=== PATIENT | male | born 1970 | race American Indian/Alaskan Native ===

== ENCOUNTER 2017-06-08 10:27 | Emergency (ER) | payer OTHER ==
[2017-06-08 10:56] VITALS: TEMP 99.9; O2SAT 99
--- NOTE | 2017-06-08 11:18 | ED PDOC ---
Arrival/HPI - General Chief Complaint: Trauma Time Seen by Provider: 06/08/17 11:02 Historian: Patient - History of Present Illness Narrative History of Present Illness (Text): 06/08/17 11:00 Gael Todd is a 46 year old male, who presents to the emergency department complaining of left leg pain and swelling since three days ago. Patient reports having a mechanical fall at work when he slipped and bruised his left leg. Patient denies head trauma or other complaints. Time/Duration: < week Symptom Onset: Sudden Symptom Course: Unchanged Activities at Onset: Light Context: Work, Slipped Past Medical History - Provider Review Nursing Documentation Reviewed: Yes - Infectious Disease Hx of Infectious Diseases: None - Endocrine/Metabolic Hx Diabetes Mellitus Type 2: (pre diabetic) - Psychiatric Hx Substance Use: Yes - Anesthesia Hx Anesthesia: No Family/Social History - Physician Review Nursing Documentation Reviewed: Yes Family/Social History: Unknown Family HX Smoking Status: maijuana Hx Alcohol Use: Yes Frequency of alcohol use: Socially Hx Substance Use: Yes Substance used: matijuana Allergies/Home Meds Allergies/Adverse Reactions: Allergies No Known Allergies Allergy (Verified 06/08/17 10:57) Review of Systems - Physician Review All systems were reviewed & negative as marked: Yes - Review of Systems Constitutional: absent: Fevers Respiratory: absent: SOB Cardiovascular: absent: Chest Pain Musculoskeletal: Other (left leg pain and swelling ) Physical Exam Vital Signs Temp Pulse Resp BP Pulse Ox 06/08/17 12:45 75 17 150/87 99 06/08/17 10:47 99.9 F H 80 18 155/99 H 99 Temperature: Afebrile Blood Pressure: Hypertensive Pulse: Regular Respiratory Rate: Normal Appearance: Positive for: Well-Appearing, Non-Toxic, Comfortable Pain Distress: None Mental Status: Positive for: Alert and Oriented X 3 - Systems Exam Head: Present: Atraumatic, Normocephalic Pupils: Present: PERRL Extroacular Muscles: Present: EOMI Conjunctiva: Present: Normal Lower Extremity: Present: Normal Inspection, NORMAL PULSES, Normal ROM, Neurovascularly Intact, Capillary Refill < 2 s. No: Edema, CALF TENDERNESS, Cyanosis, Erythema, Deformity Neurological: Present: GCS=15, CN II-XII Intact, Speech Normal Skin: Present: Warm, Dry, Normal Color. No: Rashes Psychiatric: Present: Alert, Oriented x 3, Normal Insight, Normal Concentration Medical Decision Making ED Course and Treatment: 06/08/17 Impression: 46 year old male with left leg pain s/p mechanical fall at work noted to have low grade temp. pt reports viral symptoms, but declines any eval for such. specifically requests eval of leg injury. Plan: -- Left leg x-ray -- Reassess and disposition Progress Notes: 06/08/17 13:00 Reevaluation: On reevaluation the patient feels better and is in no acute distress. I have discussed the results and plan with the patient, who expresses understanding. Patient given the opportunity to ask question, all questions were answered and there is agreement with the plan to discharge the patient home. Patient is stable for discharge. 06/08/17 14:50 pt again declines eval for low grade fever specifically requesting eval only leg injury. imaging neg as read by me. no e/o of infection. 06/08/17 14:51 - RAD Interpretation Radiology Orders: 06/08/17 11:04 TIBIA FIBULA LEFT [RAD] Stat [employer] Operator: ED Physician - Scribe Statement The provider has reviewed the documentation as recorded by the Scribe Anna Tejeda Provider Scribe Attestation: All medical record entries made by the Scribe were at my direction and personally dictated by me. I have reviewed the chart and agree that the record accurately reflects my personal performance of the history, physical exam, medical decision making, and the department course for this patient. I have also personally directed, reviewed, and agree with the discharge instructions and disposition. Disposition/Present on Arrival - Present on Arrival Any Indicators Present on Arrival: No History of DVT/PE: No History of Uncontrolled Diabetes: No Urinary Catheter: No History of Decub. Ulcer: No History Surgical Site Infection Following: None - Disposition Have Diagnosis and Disposition been Completed?: Yes Diagnosis: Leg injury, Abrasion Disposition: HOME/ ROUTINE Disposition Time: 12:00 Condition: STABLE Discharge Instructions (ExitCare): Wound Care, Sprain (DC), Skin Abrasions (DC) Additional Instructions: follow up with your doctor. return to er with worsening symptoms or concerns. Prescriptions: Naproxen [Naprosyn] 500 mg PO BID PRN #14 tablet PRN Reason: Pain, Mild (1-3) Referrals: [facility] [Outside] - Follow up with primary [facility] [Outside] - Follow up with primary [facility], [Primary Care Provider] - Follow up with primary Forms: [email or web address] (Arabic)
[2017-06-08 13:27] VITALS: BP 150/87; PULSE 75; RESP 17
--- NOTE | 2017-06-08 14:19 | RAD ---
PROCEDURE: Radiographs of the left tibia and fibula. HISTORY: trauma COMPARISON: None available. TECHNIQUE: Frontal and lateral views obtained. FINDINGS: BONES: No fracture or destructive lesion. JOINT SPACES: Unremarkable. OTHER FINDINGS: None. IMPRESSION: Unremarkable radiographs of the left tibia and fibula.
== END 2017-06-08 13:28 | disposition home or self-care (01) ==
LOC: ED 10:27
DX: S89.92XA Unspecified injury of left lower leg, initial encounter (principal); W01.0XXA Fall on same level from slipping, tripping and stumbling without subsequent striking against object, initial encounter; Y99.0 Civilian activity done for income or pay; E11.9 Type 2 diabetes mellitus without complications